=== PATIENT | male | born 1995 | race Caucasian/White ===

== ENCOUNTER 2021-05-03 13:20 | Emergency (ER) | payer OTHER, SELFPAY ==
--- NOTE | ~2021-05-03 | XR_ITS ---
EXAMINATION: XR wrist LT min 3V DATE: 05/03/2021 13:44 INDICATION: 4 days of nontraumatic left wrist pain and swelling TECHNIQUE: Posteroanterior, ulnar deviation, oblique, and lateral views of the left wrist were obtain ed. COMPARISON: none FINDINGS: Alignment is normal. No fracture. Joint spaces are normal. Soft tissues are unremarkable. IMPRESSION: 1. Negative left wrist radiographs. Reviewed, dictated and finalized at location A.
--- NOTE | 2021-05-03 13:25 | ED.UPPEXIN ---
HPI - Extremity Injury (Upper) General Chief Complaint: Extremity Injury, Upper Stated Complaint: Left Wrist Pain Time Seen by Provider: 05/03/21 13:25 Source: patient and RN notes reviewed History of Present Illness HPI narrative: Patient is a 26-year-old male who presents the urgent care with complaints of left wrist pain. Patient states he noticed swelling and pain last Monday. Patient is left-hand dominant however does most activities with his right hand. Patient has not taken anything [id number] for the swelling or pain. 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 Denies of any known injury. No other acute complaints. No acute distress noted. Patient aware of the plan of care. Some parts of this dictation were generated by voice recognition software and may contain typographical and/or grammatical inaccuracies. Related Data Home Medications Medication Instructions Recorded Confirmed No Home Medications 05/03/21 05/03/21 Allergies Allergy/AdvReac Type Severity Reaction Status Date / Time No Known Allergies Allergy Verified 05/03/21 13:35 Review of Systems Review of Systems: CONSTITUTIONAL: Denies fever, chills, or sweats. EYES: Denies visual changes, redness, or discharge. ENT: Denies rhinorrhea, congestion, sore throat, or otalgia. CARDIOVASCULAR: Denies chest pain, palpitations, or edema. RESPIRATORY: Denies cough or dyspnea. GASTROINTESTINAL: Denies abdominal pain, nausea, vomiting, or diarrhea. GENITOURINARY: Denies dysuria or hematuria. SKIN: Denies rash or itching. MUSCULOSKELETAL: Reports of left wrist pain and swelling NEUROLOGIC: Denies headache, numbness, or weakness. All other systems reviewed are negative, except as documented in HPI. PMFSH Comments At the time of my signature, I reviewed and agree with the nursing past medical, surgical, social, and family history. There is no relevant family history pertinent to the patient complaint. Exam Narrative: GENERAL: This is a well-nourished, well-developed patient, in no apparent distress. HEAD: normocephalic, atraumatic. EYES: PERRL. Sclera clear/white. Vision is grossly intact. EARS: External ears normal NOSE: External nose normal with no obvious nasal discharge, nares without redness, no rhinorrhea. THROAT: Mucous membranes moist NECK: Neck supple CARDIOVASCULAR: Regular rate and rhythm without murmurs, gallops, or rubs. RESPIRATORY: Clear to auscultation. Breath sounds equal bilaterally. No wheezes, rales, or rhonchi. SKIN: warm, intact with no suspicious lesions or rash, good texture and turgor. NEURO: awake, alert, and oriented to person, place and time. There were no obvious focal neurologic abnormalities. EXTREMITIES: Mild edema and tenderness noted to the distal radius of the left wrist. No ecchymosis noted. Pain exacerbated with rotation and movement of the left upper extremity. Positive strong left radial pulse with capillary refill less than 2 seconds. Course Vital Signs Vital signs: Vital Signs Temperature 98.1 F 05/03/21 13:32 Pulse Rate 84 05/03/21 13:32 Respiratory Rate 20 05/03/21 13:32 Blood Pressure 145/74 H 05/03/21 13:32 Pulse Oximetry 100 05/03/21 13:32 Temperature 98.1 F 05/03/21 13:32 Pulse Rate 84 05/03/21 13:32 Respiratory Rate 20 05/03/21 13:32 Blood Pressure 145/74 H 05/03/21 13:32 Pulse Oximetry 100 05/03/21 13:32 Reviewed-patient is informed that they may have pre-hypertension or hypertension based on a blood pressure reading in the department. I recommend the patient call the primary care provider listed on their discharge instructions or a physician of their choice this week to arrange follow-up for further evaluation of possible pre-hypertension or hypertension. MDM - Extremity Injury (Upper) MDM Narrative Medical decision making narrative: Reviewed x-ray results with the patient. He is aware that x-ray was negative for fracture or deformity. Advised patient to wear an Ajit wr
[2021-05-03 13:32] VITALS: BP 145/74; PULSE 84; RESP 20; TEMP 36.7; O2SAT 100
== END 2021-05-03 14:00 | disposition home or self-care (01) ==
PROVIDERS: Emergency Provider Nurse Practitioner Family
DX: M77.8 Other enthesopathies, not elsewhere classified (principal)
CPT/HCPCS: 73110; 99213; G0463

== ENCOUNTER 2023-06-23 16:08 | Emergency (ER) | payer OTHER, SELFPAY ==
[2023-06-23 16:15] VITALS: BP 167/85; PULSE 96; RESP 20; TEMP 37.2; O2SAT 96
--- NOTE | 2023-06-23 16:30 | ED.GENADULT ---
HPI - General Adult General Chief complaint: Upper Respiratory Infection Stated complaint: Shortness of Breath/Cough Source: patient, RN notes reviewed and old records reviewed Mode of arrival: ambulatory Limitations: no limitations History of Present Illness HPI narrative: 28-year-old male presents to [facility] with complaint cough for approximately 4 weeks now having intermittent shortness of breath for the last week to 2. Patient states has history of asthma but has had issues for a long time. Patient denies chest pain, weakness, dizziness, fever, vomiting. MD complaint: Shortness of breath Onset (ago): week(s) (1) Related Data Allergies Allergy/AdvReac Type Severity Reaction Status Date / Time No Known Allergies Allergy Verified 06/23/23 16:13 Review of Systems Constitutional: Constitutional: Reports no additional constitutional complaints, Denies body ache(s), Denies chills, Denies fatigue, Denies fever(s) and Denies headache(s) Eyes: Eyes: Reports no additional eye complaints and Denies blurry vision ENT: Reports system reviewed and no additional complaints, except as documented, Denies vertigo, Denies dizziness, Denies ear discharge, Denies otalgia, Denies facial pain, Denies headache(s), Reports nasal congestion, Denies nasal discharge, Denies sinus pain, Denies sinus pressure and Denies sore throat Cardiovascular: Cardiovascular: Reports no additional cardiovascular complaints, Denies chest pain, Denies chest pain at rest, Denies rapid heart rate and Denies dyspnea Respiratory: Respiratory: Reports no additional respiratory complaints, Reports chest congestion, Reports cough, Denies pain on inspiration, Denies pain with cough and Reports dyspnea Gastrointestinal: Gastrointestinal: Denies abdominal pain, Denies diarrhea, Denies nausea and Denies vomiting Integumentary/Breasts: Skin/Breast: Denies rash Neurologic: Reports system reviewed and no additional complaints, except as documented, Denies vertigo, Denies dizziness and Denies headache(s) Endocrine: Endocrine: Denies fatigue PMFSH Comments At the time of my signature, I reviewed and agree with the nursing past medical, surgical, social, and family history. There is no relevant family history pertinent to the patient complaint. Exam Const: General: cooperative, healthy appearing, no acute distress and well nourished Nutritional Appearance: well nourished Orientation/consciousness: patient oriented x3 Limitations: no limitations HENMT: Head: normal to inspection and normocephalic Ears: external ears normal, TM's normal bilaterally, mastoids normal and Abnormal EAC present Face/Nose/Sinus: normal facial exam Face and sinus: normal facial exam Mouth: Yes Normal oral and palatal mucosa present, Yes oropharynx normal and Yes moist mucous membranes Throat: posterior oropharynx normal, tonsils normal, uvula midline and no uvular edema Eyes: General: appearance normal, both eyes and all related structures Sclera: sclerae normal Pupils: Equal, round and reactive pupils present Resp: Effort & Inspection: normal respiratory effort, able to speak in complete sentences, no audible wheezes, no cough, no respiratory distress and no retractions Auscultation: no crackles, no rales, no rhonchi and wheezes inspiratory wheezes ( bilateral lower lobe) Cardio: Rate: regular rate Rhythm: regular rhythm Skin: General skin exam: normal color and no rashes or lesions noted Neuro: General: patient oriented x3 Cranial nerves: Yes Equal, round and reactive pupils present Psych: Appearance: grossly normal Mental Status: mental status grossly normal Speech and movement: Normal speech and movement present Affect: normal affect Course Course Emergency Course: Patient is aware of diagnosis, understands and agrees to treatment plan.? Anticipatory guidance given.? Patient agrees to follow-up as directed and is aware of reasons to seek care at the emergency department. García
== END 2023-06-23 16:38 | disposition home or self-care (01) ==
PROVIDERS: Emergency Provider Registered Nurse
DX: J20.9 Acute bronchitis, unspecified (principal); J45.20 Mild intermittent asthma, uncomplicated
CPT/HCPCS: 99213; G0463

== ENCOUNTER 2024-11-09 12:41 | Emergency (ER) | payer OTHER, SELFPAY ==
--- NOTE | ~2024-11-09 | CT_ITS ---
CT brain wo con Ordering provider: Orly Block PA-C History: 29 years Male with . headache . Comparison: None. Technique: CT of the head without contrast. Radiation reduction technique utilized.The dose-length pr oduct was 605.33 mGy-cm. FINDINGS: BRAIN PARENCHYMA AND CSF SPACES: No midline shift, mass effect or hemorrhage. The brain parenchyma a nd CSF spaces are otherwise normal. VISUALIZED PARANASAL SINUSES: Well aerated. MASTOIDS: Well aerated. BONES: The bones appear intact. SOFT TISSUES: Visualized nasopharynx is normal. Superficial soft tissues are normal. IMPRESSION: No acute intracranial findings. Reviewed, dictated and finalized at location A.
--- OUTSIDE RECORDS SUMMARY | 2024-11-09 12:44 | XMS_ITS | Clinical Summary ---
Author Organization [facility] Address [address] [place] [address] Phone Care Team Providers Care Ice Cream Vendor Name Role Phone Unavailable Primary Care Provider Unavailabl e Allergies No known active allergies Medications sucralfate (CARAFATE) 1 GM Tablet Take 1 Tab by mouth every 6 hours. 120 Tab 3 7 Active omeprazole (PRILOSEC) 40 MG CAPSULE DELAYED RELEASE Take 1 Cap by mouth 2 times daily (before meals). 180 Cap 7 Active ondansetron (ZOFRAN ODT) 8 MG TABLET DISPERSIBLE Take 1 Tab by mouth every 8 hours as needed for Nausea. 30 Tab 7 Active Additional Information Patient not taking.Reported on 05/04/2017 Active Problems Problem Noted Date Diagnosed Date Dysuria 07/22/2015 Family History Medical History Relation Name Comments Alcohol Abuse Father Diabetes Father Cancer Maternal Grandmother intesti sirena No Known Problems Mother Relation Name Status Comments Father Alive Maternal Grandmother Mother Alive Social History Tobacco Use Types Packs/Day Years Used Date Smoking Tobacco: Some Days Cigarettes 0.5 5 Smokeless Tobacco: Current Chew Tobacco Cessation:Ready to Q uit: Yes; Counseling Given: Yes Comments:trying to quit Alcohol Use Standard Drinks/Week Comments Yes 0 (1 standard drink = 0.6 oz pure alcohol) drinks week ends case beers on week ends Sexually Active Control Partners Comments Yes Female Sex and Gender Information Value Date Recorded Sex Assigned at Not on file Legal Sex Male 10:48 PM CDT Gender Identity Not on file Sexual Orientation Not on file 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 file Not on file Not on file Last Filed Vital Signs Vital Sign Reading Time Taken Comments Blood Pressure 127/77 05/09/2017 10:59 AM SCADA OPERATOR Pulse 64 05/09/2017 9:03 AM SCADA OPERATOR Temperature 36 C (96.8 F) 05/09/2017 10:59 AM SCADA OPERATOR Respiratory Rate 15 05/09/2017 10:59 AM SCADA OPERATOR Oxygen Saturation 100% 05/09/2017 10:59 AM SCADA OPERATOR Inhaled Oxygen Concentration - - Weight 81.6 kg (180 lb) 05/04/2017 9:00 AM CDT Height 182.9 cm (6') 05/04/2017 9:00 AM CDT Body Mass Index 24.41 05/04/2017 9:00 AM CDT Plan of Treatment Upcoming Encounters Date Type Department Care Team (Late st Contact Info) Description 11/20/2024 4:45 PM CDT Office Visit [facility] - Primary Care - [facility] [address] [place] [address] Drew Chen, PAC [address] [place] [address] Health Maintenance Due Date Last Done Comments Hepatitis C Virus (HCV) Screening 1995 TdaP Immunization 1995 06/30/2022, 06/07/2018 Hepatitis B Immunization (1 of 3 - 19+ 3-dose series) 2014 Influenza Immunization (#1) 2024 SARS-COV-2 Immunization ( season) 2024 05/26/2021 Respiratory Syncytial Virus (RSV) Immunization (Adult) (1 - 1-dose 75+ series) 2070 Meningococcal Immunization (ACWY) Aged Out No longer eligible b ased on patient's age to complete this topic Pneumococcal Immunization Combined Aged Out No longer eligible b ased on patient's age to complete this topic Rotavirus Immunization Aged Out No lo nger eligible based on patient's age to complete this topic
--- OUTSIDE RECORDS SUMMARY | 2024-11-09 12:44 | XMS_ITS | Referral Summary ---
Author Organization [facility] [address] Address [address] [facility] [place] [address] Phone Care Team Providers Care Weighing Station Operator Name Role Phone Abdirahman Snyder MD Primary Care Provider [phone] Encounters Date Type Department Care Team Description 11/07/2024 2:14 AM CDT - 11/07/2024 4:09 AM CDT Emergency [facility] Emergency Department [address] [place] [address] Lakhwinder Baltazar MD Atypical chest pain (Primary Dx); Nonintractable headache, unspecified chronicity pattern, unspecified headache type Discharge Disposition: Discharge to home or self care from Last 3 Months Allergies No known active allergies Medications naproxen (NAPROSYN) 500 mg tablet Take 1 tablet (500 mg total) by mouth 2 (two) times a day as needed for pain (pain) 28 tablet 02/05/2024 Active Active Problems Problem Noted Date Diagnosed Date Right flank pain 02/05/2024 Assessment & Plan (02/05/2024 6:02 PM CDT): Patient describes pain approximate 10th rib down to approximate L3 pain is midclavicular line goes around to anterior clavicular line. Pain is only when he takes a deep breath and turns certain ways.. 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 Does have some pain in both lower abdomen on palpating. Acute abdomen present no masses felt. 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 14 days patient is advised if he gets worse go to the emergency room he advised if he does not totally clear he is to contact me. Low back pain without sciatica 08/03/2023 Assessment & Plan (08/03/2023 5:09 PM [employer]): Patient has had low back pain for about 3 weeks he saw a chiropractor no benefits from the visits he put on icStupil hot this did not help his back did not want to take any pills at the time. 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 His back pain is on left side was down to his buttocks straight leg raise aggravates his back pain minimally.. Plans at this time for this gentleman physical therapy to teach him about back exercises. Advised him given his line of work he is going to have recurrent back pain. Came some Naprosyn 500 mg twice a day with food for month. Gastroesophageal reflux disease without esophagi tis 07/06/2018 Assessment & Plan (07/06/2018 1:56 PM [employer]): Patient's 23 years old he tells me he is having a lot of heartburn get a similar problems about a year urine half ago saw Dr. Solomon was given medications which solve this problem he has been symptomatic about 2 weeks. Patient's pain is worse after he eats. Review his chart about ER and half ago he was given Carafate follow-up by omeprazole 40 mg a day. Is no pain going through to his back. Pain over the epigastric area on palpating no liver enlargement nothing else is present. Plans at this patient is given Dexilant 60 mg samples total of 10 tabs be followed by omeprazole 40 mg per day for 30 days. Patient was advised to discontinue smoking. 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 With the GERD symptoms he smoking less because of smoking does aggravate his stomach advised patient stop smoking. Discussed with him nicotine patch the how they work utilizing nicotine gum with it. So recommended that he consider Chantix I gave patient information and handbook on Chantix. Well adult exam 12/25/2017 Assessment & Plan (08/03/2023 4:04 PM [employer]): History and physical completed patient's health risk assessment health maintenance reviewed in addressed. Only new health problems back pain which is been going on about 3 weeks. 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 No immunizations a blood test indicated at this time. Patient has declined a flu shot. Assessment & Plan (01/22/2021 5:06 PM CDT): History and physical completed patient's health risk assessment health maintenance reviewed in addressed. Patient is asymptomatic patient has not had a COVID vaccine. Answer patient's questions regarding COVID vaccine. Reminded patient's at this time the people dying from COVID are unvaccinated. Discussed with this patient regarding HPV vaccine. Given handout on HPV vaccine. Advised not want. No laboratory studies indicate him to get a COVID vaccine for 2 months later he get HPV. COVID is an immediate threat to him HPV is not. The laboratory studies indicated Assessment & Plan (12/25/2017 5:38 PM CDT): 22-year-old gentleman who is here for annual exam no ongoing health problems as a past history of asthma which he has not been symptomatic for least 5 years. 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 Without any respiratory any of the health difficulties. His exam is completely normal. No indications for any laboratory studies. See this gentleman a p.r.n. basis. Resolved Problems Problem Noted Date Diagnosed Date Resolved Date Non-recurrent acute suppurat godwin otitis media of right ear without spontaneous rupture of tympanic membrane 01/06/2021 08/03/2023 Assessment & Plan (01/06/2021 3:50 PM CDT): Patient presents with bilateral ear pain fever, congestion, fever and feelings of being light headed. On exam acute otitis of the rt ear noted. He will begin antibiotic therapy which he is to complete as prescribed. He will return for recheck in 7-10 days to verify resolution or sooner if needed. Cough 01/06/2021 08/03/2023 Assessment & Plan (01/06/2021 3:52 PM CDT): Patient presents with cough x 4 days. He has associated wheezing and congestion. He had rapid covid 19 testing completed that was negative. We will do CXR to r/o any acute cardiopulmonary process. He will be started on steroids and albuterol inhaler for cough and wheezing. He was encouraged to avoid tobacco abuse. He will follow up in 7-10 days to verify resolution of symptoms. He is to call with any worsening or persistent symptoms. Chest pain in adult 05/25/2020 08/03/19 Assessment & Plan (05/25/2020 5:31 PM [employer]VISOR [employer]): Patient has been having some chest pain over 2 months is right over the sternum into the left approximately 2nd through 4th rib not in the mid axillary line is parasternal pain.. 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 Other times is walking gives is pain pain is less than 5 minutes duration.. Patient advised me that he wears a harness worse chest is the pulls on him and is equal to about 40- 50 lb weight. Patient's EKG is normal. Has no further recommendations at this time he will be taking Naprosyn for his neck pain and may help with his chest wall type pain. Neck pain, acute 05/25/2020 08/03/2023 Assessment & Plan (05/25/2020 5:30 PM [employer]OR [employer]): Acute neck pain x3 days no history of injury patient woke up with neck pain pain on range of motion. Went to a chiropractor earlier today this has not helped him. Patient has full range of motion is neck however his pain at about 30 turning in the left or right. Some tightness over the top of his shoulders in his neck. His previous problem about 2 months ago last several days.. Patient not schedule work remainder of the week will prescribe for him Flexeril 10 mg 1-2 times per day. Patient is also advised use Naprosyn 500 mg twice a day. Once he improves he can stop the Naprosyn. Flexeril is certainly a temporary situation I gave him warnings regarding side effects including drowsiness in operate machinery. Urinary tract infection without hematuria 02/20/2019 08/03/2023 Assessment & Plan (02/20/2019 10:37 AM CDT): Patient describes pain at tip of his urethra to time urination. He has suprapubic pain prior to urination has some slight groin tenderness at times symptoms in present 5-7 days. Plans at this time get a UA and culture and sensitivity start this gentleman on doxycycline 100 mg twice a day for next 10 days. Patient instructed give me a progress report next week.. Advised if this fails to clear up with appropriate antibiotics see rib very well admitted to see a urologist.. Dysuria 07/22/2015 08/03/2023 Immunizations Immunization Administration Dates Next Due Influenza, Unspecified 04/12/2023(Deferred: Chasity ent Refused) Tdap 06/30/2022,06/07/2018 Social History Tobacco Use Types Packs/Day Years Used Date Smoking Tobacco: Some Days Cigarettes Smokeless Tobacco: Current Tobacco Cessation:Ready to Q uit: Not Asked; Counseling Given: Not Answered Alcohol Use Standard Drinks/Week Comments Yes 12 (1 standard drink = 0.6 oz pu re alcohol) PHQ-2 Answer Date Recorded PHQ-2 Total Score (If total score is 3 or more points, staff should administer the PHQ-9) 0 05/25/2020 Personal Safety Answer Date Recorded Have you ever been in or are you currently in a harmful physical or emotional relationship or is someone making you feel afraid or unsafe? Denies 11/07/2024 Sex and Gender Information Value Date Recorded Sex Assigned at Not on file Legal Sex Male 7:01 PM [employer] Gender Identity Not on file Sexual Orientation Not on file Last Filed Vital Signs Vital Sign Reading Time Taken Comments Blood Pressure 125/76 11/07/2024 3:45 AM CDT Pulse 70 11/07/2024 3:45 AM CDT Temperature 37.3 C (99.2 F) 11/07/2024 12:15 AM CDT Respiratory Rate 18 11/07/2024 3:45 AM CDT Oxygen Saturation 98% 11/07/2024 3:45 AM CDT Inhaled Oxygen Concentration - - Weight 86.2 kg (190 lb) 11/07/2024 12:15 AM CDT Height 177.8 cm (5' 10 ) 11/07/2024 12:15 AM CDT Body Mass Index 27.26 11/07/2024 12:15 AM CDT Plan of Treatment Not on file Procedures Procedure Name Priority Date/Time Associated Diagnosis Comments TROPONIN T HIGH-SENSITIVITY 2-HOUR Timed 11/07/2024 2:25 AM CDT XR CHEST PA LATERAL 2 VIEWS ED 11/07/2024 12:37 AM CDT EGFR STAT 11/07/2024 12:27 AM CDT DIFFERENTIAL AUTO STAT 11/07/2024 12: 27 AM CDT TROPONIN T HIGH-SENSITIVITY SERIES (BASELINE, 2HR, 4HR, 6HR) STAT 11/07/2024 12:27 AM CDT COMPREHENSIVE METABOLIC PANEL STAT 11/07/2024 12:27 AM CDT CBC WITH AUTO DIFFERENTIAL STAT 11/07/2024 12:27 AM CDT ECG 12-LEAD STAT 11/07/2024 12:19 AM CDT from Last 3 Months Results * Troponin T high-sensitivity 2-hour (11/07/2024 2:25 AM CDT) Trop T hs <6 <=22 ng/L Comment: Interpretive Data For further hscTnT resources including the diagnostic algorithm and an aid in interpretation, copy and paste this link: https://nrl.testcatalog.org/show/hsTrop Current Interpretive Data last revised 2020. Trop T hs delta 0 ng/L [facility] ([place]) Trop T hs interp Insignificant [facility] ([place]) Blood 11/07/2024 2:25 AM CDT 11/07/2024 2:27 AM CDT Lakhwinder Baltazar MD LAB BLOOD ORDERABLES Final R esult [facility] ([place]) [facility] Department [place] [address] * XR Chest PA Lateral 2 Views (11/07/2024 12:37 AM CDT) Anatomical Region Laterality Modality Body, Chest N/A Computed Radiogr aphy 11/07/2024 12:4 3 AM CDT Narrative 11/07/2024 12:44 AM CDT EXAM DESCRIPTION: XR CHEST PA LATERAL 2 VIEWS REASON FOR STUDY: chest pain C/o left sided chest pain and a headache x 1 month. Pt states he has dizziness and nausea tonight. No cardiac hx TECHNIQUE: 2 radiographic view(s) of the chest. COMPARISON: 02/08/2024 FINDINGS: LUNGS: No focal opacity, pleural effusion, or pneumothorax. HEART/MEDIASTINUM: Cardiac silhouette normal in size. Mediastinal and hilar contours appear normal. LINES/TUBES: None. BONES: No acute osseous abnormality. IMPRESSION: No acute cardiopulmonary abnormality. THIS IS AN ELECTRONICALLY VERIFIED FINAL REPORT 11/07/2024 12:44 AM - Electronically signed by Matias Pleitez M.D. KH: LELIA Report ID: [id number] Reading Location: [id number] Procedure Note Matias Pleitez MD - 11/07/2024 EXAM DESCRIPTION: XR CHEST PA LATERAL 2 VIEWS REASON FOR STUDY: chest pain C/o left sided chest pain and a headache x 1 month. Pt states he hasdizziness and nausea tonight. No cardiac hx TECHNIQUE: 2 radiographic view(s) of the chest. COMPARISON: 02/08/2024 FINDINGS: LUNGS: No focal opacity, pleural effusion, or pneumothorax. HEART/MEDIASTINUM: Cardiac silhouette normal in size. Mediastinal andhilar contours appear normal. LINES/TUBES: None. BONES: No acute osseous abnormality. IMPRESSION: No acute cardiopulmonary abnormality. THIS IS AN ELECTRONICALLY VERIFIED FINAL REPORT 11/07/2024 12:44 AM - Electronically signed by Matias Pleitez M.D. KH: LELIA Report ID: [id number] Reading Location: [place] [address] Lakhwinder Baltazar MD IMG XR PROCEDURES Final Resu lt * Troponin T high-sensitivity series (baseline, 2hr, 4hr, 6hr) (11/07/2024 12:27 AM CDT) Trop T hs <6 <=22 ng/L Comment: Interpretive Data For further hscTnT resources including the diagnostic algorithm and an aid in interpretation, copy and paste this link: https://nrl.testcatalog.org/show/hsTrop Current Interpretive Data last revised 2020. Blood 11/07/2024 12:2 7 AM CDT 11/07/2024 12:40 AM CDT Lakhwinder Baltazar MD LAB BLOOD ORDERABLES Final R esult [facility] [place]) [facility] Department of Laboratories [place], [place] [id number] * eGFR (11/07/2024 12:27 AM CDT) eGFR >90 >=60 mL/min/1. 73 m2 Comment: Interpretive Data Reference Interval Normal >/= 90 mL/min/1.73m2 Mildly decreased* 60 - 89 mL/min/1.73m2 Mildly to moderately decreased 45 - 59 mL/min/1.73m2 Moderately to severely decreased 30 - 44 mL/min/1.73m2 Severely decreased 15 - 29 mL/min/1.73m2 Kidney Failure < 15 mL/min/1.73m2 *Relative to young adult level Estimated glomerular filtration rate is determined by the 2020 CKD-EPI equation recommended by the National Kidney Foundation (A Unifying Approach to GFR Estimation: Recommendations of the NKF-ASK Task Force on Reassessing the Inclusion of Race in Diagnosing Kidney Disease, JASN 2020). The CKD-EPI equation should not be used for patients with unstable renal function and has not been validated in children and those over 70. Current interpretive data was last reviewed 2021. Blood 11/07/2024 12:2 7 AM CDT 11/07/2024 12:40 AM CDT Lakhwinder Baltazar MD LAB BLOOD ORDERABLES Final R esult [facility] ([place]) [facility] Department [place] [address] * Differential, auto (11/07/2024 12:27 AM CDT) Neutrophil abs 2.90 1.50 - 6.50 K/cumm Imm gran abs 0.03 0.00 - 0.10 K/cumm [facility] ([place]) Lymphocyte abs 3.25 0.80 - 3.30 K/cumm [facility] ([place]) Monocyte abs 0.34 0.20 - 0.80 K/cumm [facility] ([place]) Eosinophil abs 0.11 0.00 - 0.50 K/cumm [facility] ([place]) Basophil abs 0.03 0.00 - 0.10 K/cumm [facility] ([place]) Neutrophil pct 43.4 % [facility] ([place]) Comment: Interpretive Data Percent cell count reference ranges are not reported, since discordance with absolute values may lead to misinterpretation of CBC data. Current Interpretive Data was last revised on 2017. Imm gran pct 0.5 % [facility] ([place]) Comment: Interpretive Data Percent cell count reference ranges are not reported, since discordance with absolute values may lead to misinterpretation of CBC data. Current Interpretive Data was last revised on 2017. Lymphocyte pct 48.8 % [facility] ([place]) Comment: Interpretive Data Percent cell count reference ranges are not reported, since discordance with absolute values may lead to misinterpretation of CBC data. Current Interpretive Data was last revised on 2017. Monocyte pct 5.1 % [facility] ([place]) Comment: Interpretive Data Percent cell count reference ranges are not reported, since discordance with absolute values may lead to misinterpretation of CBC data. Current Interpretive Data was last revised on 2017. Eosinophil pct 1.7 % [facility] ([place]) Comment: Interpretive Data Percent cell count reference ranges are not reported, since discordance with absolute values may lead to misinterpretation of CBC data. Current Interpretive Data was last revised on 2017. Basophil pct 0.5 % [facility] ([place]) Comment: Interpretive Data Percent cell count reference ranges are not reported, since discordance with absolute values may lead to misinterpretation of CBC data. Current Interpretive Data was last revised on 2017. Blood 11/07/2024 12:2 7 AM CDT 11/07/2024 12:40 AM CDT us Lakhwinder Baltazar MD LAB BLOOD ORDERABLES Final R esult [facility] ([place]) [facility] Department [place] [address] * CBC with auto differential (11/07/2024 12:27 AM CDT) WBC 6.66 3.80 - 9.90 K/cumm Hgb 14.3 13.0 - 17.5 g/dL [facility] ([place]) Hct 40.2 38.9 - 50.3 % [facility] ([place]) Plt 287 150 - 400 K/cumm [facility] ([place]) MPV 9.5 9.1 - 12.3 fL [facility] ([place]) RBC 4.74 4.30 - 5.80 M/cumm [facility] ([place]) MCV 84.8 81.3 - 96.4 fL [facility] ([place]) MCH 30.2 27.1 - 33.3 pg [facility] MCHC 35.6 32.3 - 35.7 g/dL [facility] ([place]) RDW CV 12.5 11.1 - 14.9 % [facility] ([place]) RDW SD 38.4 35.7 - 48.1 fL [facility] ([place]) NRBC abs 0.00 0.00 - 0.01 K/cumm [facility] ([place]) Blood Venous blood specimen / Unknown 11/07/2024 12:27 AM CDT 11/07/2024 12:40 AM CDT Lakhwinder Baltazar MD LAB BLOOD ORDERABLES Final R esult [facility] Department [place] [address] * (ABNORMAL) Comprehensive metabolic panel (11/07/2024 12:27 AM CDT) Sodium 143 135 - 145 mmol/L Potassium, pl 3.8 3.3 - 4.9 mmol/L [facility] ([place]) Chloride 106 97 - 110 mmol/L [facility] CO2 21(L) 22 - 32 mmol/L [facility] Anion gap 16(H) 2 - 15 mmol/L [facility] ([place]) BUN 11 6 - 25 mg/dL [facility] ([place]) Creatinine 0.83 0.80 - 1.30 mg/dL [facility] Glucose 135 70 - 199 mg/dL [facility] ([place]) Comment: Interpretive Data Fasting glucose >/= 126 mg/dl is diagnostic for diabetes. Fasting is defined as no caloric intake for at least 8 hours. Fasting glucose between 100 mg/dl to 125 mg/dl is diagnostic of prediabetes. In a patient with classic symptoms of hyperglycemia or hyperglycemic crisis, a random glucose >/= 200 mg/dl is diagnostic for diabetes. In the absence of unequivocal hyperglycemia, results should be confirmed by repeat testing. The classification and Diagnosis of Diabetes Diabetes Care 2021; 46: S19-S40. Current interpretive data was last revised 2022. Calcium 9.5 8.5 - 10.3 mg/dL [facility] Bilirubin, total <0.2 0.1 - 1.2 mg/dL [facility] ([place]) Protein, pl 7.4 6.5 - 8.5 g/dL [facility] ([place]) Albumin 4.7 3.5 - 5.0 g/dL [facility] ([place]) Alk phos 52 40 - 130 Units/L [facility] ([place]) ALT 29 7 - 55 Units/L [facility] ([place]) AST 22 10 - 50 Units/L [facility] ([place]) Comment: Hemolysis present. Results may be affected. Slightly Hemolyzed Specimen Blood 11/07/2024 12:2 7 AM CDT 11/07/2024 12:40 AM CDT Lakhwinder Baltazar MD LAB BLOOD ORDERABLES Final R esult Performing Organization Address City/[facility] Co de Phone Number [facility] ([place]) [address] [facility] Department [place] [address] * ECG 12 lead (11/07/2024 12:19 AM CDT) 11/07/2024 12:1 9 AM CDT Narrative [facility] - 11/07/2024 6:58 AM CDT Vent Rate: 94 bpm RR Interval: 635 msec SC Interval: 153 msec QRS Duration: 95 msec QT Interval: 330 msec QTC Interval: 382 msec P-R-T Prentiss: 73 - 50 - 44 degrees IMPRESSION: SINUS RHYTHM POSSIBLE RIGHT VENTRICULAR CONDUCTION DELAY [RSR (QR) IN V1/V2] NONSPECIFIC ST ELEVATION [0.05+ mV ST ELEVATION] BORDERLINE ECG Electronically Signed By: Adam Welch MD Lakhwinder Baltazar MD ECG ORDERABLES Final Result Performing Organization Address [facility] Co de Phone Number [facility] from Last 3 Months Insurance [facility] [employer] [facility] H[employer]/PPO Address: [address] [address] [place] [address] [facility] H[facility]/PPO Address: [address] [address] [place] [address] Care Teams Weighing Station Operator Relationship Specialty Start Date End Date Abdirahman Snyder MD PCP - General Internal Medicine 12/14/17
--- OUTSIDE RECORDS SUMMARY | 2024-11-09 12:44 | XMS_ITS | Clinical Summary ---
Author Organization CC [facility] [address] Address [address] [place] [address] Phone Care Team Providers Care Protein Purification Scientist Name Role Phone Abdirahman Snyder MD Primary Care Provider +1- [phone] Allergies No known active allergies Medications naproxen [...] 08/03/2023 Assessment & Plan (08/03/2023 5:09 PM CARPET MEASURER): Patient has had low back pain for about 3 weeks he saw a chiropractor no benefits from the visits he put on icy hot this did not help his back [...] 07/06/2018 Assessment & Plan (07/06/2018 1:56 PM CARPET MEASURER): Patient's 23 years old he tells me [...] 07/06/2018 Assessment & Plan (07/06/2018 1:57 PM CARPET MEASURER): Patient was back O2 from age 14 [...] 12/25/2017 Assessment & Plan (08/03/2023 4:04 PM CARPET MEASURER): History and physical completed patient's health risk [...] 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 Without any respiratory any of the health [...] symptoms. Chest pain in adult 05/25/2020 08/03/19 24 Assessment & Plan (05/25/2020 5:31 PM CARPET MEASURER): Patient has been having some chest pain over 2 months is right over the sternum into the left approximately 2nd through 4th rib not in the mid axillary line is parasternal pain.. 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 [...] 08/03/2023 Assessment & Plan (05/25/2020 5:30 PM CARPET MEASURER): Acute neck pain x3 days no history [...] to see a urologist.. Dysuria 07/22/2015 08/03/2023 Encounters Date Type Department Care Team Description 11/07/2024 2:14 AM CDT - 11/07/2024 4:09 AM CDT Emergency [facility] Emergency Department [address] [place] [address] Lakhwinder Baltazar MD Atypical chest pain (Primary Dx); Nonintractable headache, unspecified chronicity pattern, unspecified headache type Discharge Disposition: Discharge to home or self care from Last 3 Months Immunizations Immunization Administration Dates Next Due Influenza, Unspecified 04/12/2023(Deferred: Chasity ent Refused) Tdap 06/30/2022,06/07/2018 Family History Medical History Relation Name Comments Alcohol abuse Other Cancer Other Gout Other Hypertension Other Relation Name Status Comments Other Social History Tobacco Use Types Packs/Day Years [...] on file Legal Sex Male 7:01 PM CARPET MEASURER Gender Identity Not on file Sexual Orientation Not on file Obstetrics History Last Filed Vital Signs Vital Sign Reading [...] 11/07/2024 12:15 AM CDT Plan of Treatment Health Maintenance Due Date Last Done Comments Hepatitis C Screening 1995 Varicella Vaccines (1 of 2 - 13+ 2-dose series) 02/11/2008 Hepatitis B Screening 2013 Pneumococcal vaccine <65 (1 of 2 - PCV) 2014 Depression Screening 05/25/2021 05/25/2020 Covid-19 Vaccine (2 - 2023-2 5 season) 2024 05/26/2021 Regular Well Visit/Exam 18-64 08/03/2024, 01/22/2021, 12/25/2017 Influenza Vaccine (Season Ended) 2025 DTaP/Tdap/Td Vaccine (3 - Td or Tdap) 06/30/2032 06/30/2022, 06/07/2018 HPV Vaccines Aged Out No longer eligi ble based on patient's age to complete this topic Procedures Procedure Name Priority Date/Time Associated Diagnosis [...] hs delta 0 ng/L [facility] ([place]) Trop T hs interp Insignificant [facility] ([place]) Blood 11/07/2024 2:25 AM CDT 11/07/2024 2:27 AM CDT Lakhwinder Baltazar MD LAB BLOOD ORDERABLES Final R esult [facility] ([place]) 1 [facility] [place] [address] * XR Chest PA Lateral 2 Views [...] 12:44 AM - Electronically signed by Matias ROWELL: LELIA Report ID: [id number] Reading Location: [id number] Procedure Note Matias Pleitez MD - 11/07/2024 [...] 12:44 AM - Electronically signed by Matias ROWELL: LELIA Report ID: [id number] Reading Location: [place] [address] Lakhwinder Baltazar MD IMG XR PROCEDURES Final [...] BLOOD ORDERABLES Final R esult [facility] ([place]) 1 [facility] [place] [address] * eGFR (11/07/2024 12:27 AM CDT) eGFR [...] BLOOD ORDERABLES Final R esult [facility] ([place]) 1 [facility] [place] [address] * Differential, auto (11/07/2024 12:27 AM CDT) [...] Final R esult [facility] ([place]) 1 [facility] [place] [address] * CBC with auto differential (11/07/2024 12:27 AM CDT) Pathologist [facility] WBC 6.66 3.80 - 9.90 K/cumm Hgb [...] ([place]) MCH 30.2 27.1 - 33.3 pg [facility] ([place]) MCHC 35.6 32.3 - 35.7 g/dL [facility] ([place]) RDW CV 12.5 11.1 - 14.9 % [facility] ([place]) RDW SD 38.4 35.7 - 48.1 fL [facility] ([place] NRBC abs 0.00 0.00 - 0.01 K/cumm [facility] Blood Venous blood specimen / Unknown 11/07/2024 12:27 AM CDT 11/07/2024 12:40 AM CDT Lakhwinder Baltazar MD LAB BLOOD ORDERABLES Final R esult [facility] ([place]) 1 [facility] Department [place] [address] * (ABNORMAL) Comprehensive metabolic panel (11/07/2024 12:27 AM CDT) [facility] Sodium 143 135 - 145 mmol/L Potassium, pl 3.8 3.3 - 4.9 mmol/L [facility] ([place]) Chloride 106 97 - 110 mmol/L [facility] ([place]) CO2 21(L) 22 - 32 mmol/L [facility] ([place]) Anion gap 16(H) 2 - 15 mmol/L [facility] ([place]) BUN 11 6 - 25 mg/dL [facility] ([place]) Creatinine 0.83 0.80 - 1.30 mg/dL [facility] ([place]) Glucose 135 70 - 199 mg/dL [facility] ([place]) Comment: Interpretive Data Fasting glucose [...] 2022. Calcium 9.5 8.5 - 10.3 mg/dL [facility] ([place]) Bilirubin, total <0.2 0.1 - [...] Final R esult [facility] ([place]) 1 [facility] [place] [address] * ECG 12 lead (11/07/2024 12:19 AM CDT) 11/07/2024 12:1 9 AM CDT Narrative [facility] - 11/07/2024 6:58 AM CDT Vent Rate: 94 bpm RR Interval: 635 msec SC Interval: 153 msec QRS Duration: 95 msec QT Interval: 330 msec QTC Interval: 382 msec P-R-T [place]: 73 - 50 - 44 degrees IMPRESSION: SINUS RHYTHM POSSIBLE RIGHT VENTRICULAR CONDUCTION DELAY [RSR (QR) IN V1/V2] NONSPECIFIC ST ELEVATION [0.05+ mV ST ELEVATION] BORDERLINE ECG Electronically Signed By: Adam Welch MD us Lakhwinder Baltazar MD ECG ORDERABLES Final Result [facility] from Last 3 Months Insurance [facility] CHOICE PLUS [facility] H[facility]/PPO Address: [facility] [id number] [place] [id number] [facility] H[facility]/PPO Address: [address] [address] Care Teams Protein Purification Scientist Relationship Specialty Start Date End Date Abdirahman Snyder MD PCP - General Internal Medicine 12/14/17
[2024-11-09 13:10] VITALS: BP 150/80; PULSE 68; RESP 16; TEMP 36.6; O2SAT 100
--- OUTSIDE RECORDS SUMMARY | 2024-11-09 14:07 | XMS_ITS | Clinical Summary ---
Author Organization CC [facility] [address] Address [address] [place] [address] Phone Care Team Providers Care Manager Fixed Income Name Role Phone Abdirahman Snyder MD Primary Care Provider +1- [phone] Allergies No known active allergies Medications naproxen [...] 08/03/2023 Assessment & Plan (08/03/2023 5:09 PM BLUEPRINT CUTTER): Patient has had low back pain for [...] 07/06/2018 Assessment & Plan (07/06/2018 1:56 PM BLUEPRINT CUTTER): Patient's 23 years old he tells me [...] 07/06/2018 Assessment & Plan (07/06/2018 1:57 PM BLUEPRINT CUTTER): Patient was back O2 from age 14 [...] 12/25/2017 Assessment & Plan (08/03/2023 4:04 PM BLUEPRINT CUTTER): History and physical completed patient's health risk [...] 24 Assessment & Plan (05/25/2020 5:31 PM BLUEPRINT CUTTER): Patient has been having some chest pain over 2 months is right over the sternum into the left approximately 2nd through 4th rib not in the mid axillary line is parasternal pain.. 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 [...] 08/03/2023 Assessment & Plan (05/25/2020 5:30 PM BLUEPRINT CUTTER): Acute neck pain x3 days no history [...] CDT - 11/07/2024 4:09 AM CDT Emergency [facility] Emergency Department [address] [place] [address] Lakhwinder Baltazar MD Atypical chest pain (Primary [...] on file Legal Sex Male 7:01 PM BLUEPRINT CUTTER Gender Identity Not on file Sexual Orientation [...] hs delta 0 ng/L [facility] ([place]) Trop T hs interp Insignificant [facility] ([place]) Blood 11/07/2024 2:25 AM CDT 11/07/2024 2:27 AM CDT Lakhwinder Baltazar MD LAB BLOOD ORDERABLES Final R esult [facility] ([place]) 1 [facility] Department [place] [address] * XR Chest PA Lateral 2 Views [...] signed by Matias ROWELL: LELIA Report ID: [id number] Reading Location: [id number] Procedure Note Matias Pleitez MD - 11/07/2024 [...] signed by Matias ROWELL: LELIA Report ID: [id number] Reading Location: [place] [address] Lakhwinder Baltazar MD IMG XR PROCEDURES Final [...] BLOOD ORDERABLES Final R esult [facility] ([place]) 1 [facility] [place] [address] * eGFR (11/07/2024 12:27 AM CDT) eGFR [...] BLOOD ORDERABLES Final R esult [facility] ([place]) 1 [facility] [place] [address] * Differential, auto (11/07/2024 12:27 AM CDT) [...] Final R esult [facility] ([place]) 1 [facility] [place] [address] * CBC with auto differential (11/07/2024 12:27 AM CDT) Pathologist [facility] WBC 6.66 3.80 - 9.90 K/cumm [...] RDW SD 38.4 35.7 - 48.1 fL [facility] NRBC abs 0.00 0.00 - 0.01 K/cumm [facility] Blood Venous blood specimen / Unknown 11/07/2024 12:27 AM CDT 11/07/2024 12:40 AM CDT Lakhwinder Baltazar MD LAB BLOOD ORDERABLES Final R esult [facility] ([place]) 1 [facility] Department [place] [address] * (ABNORMAL) Comprehensive metabolic panel (11/07/2024 12:27 AM CDT) [facility] Sodium 143 135 - 145 mmol/L Potassium, [...] Final R esult [facility] ([place]) 1 [facility] Department [place] [address] * ECG 12 lead (11/07/2024 12:19 AM CDT) 11/07/2024 12:1 9 AM CDT Narrative [facility] - 11/07/2024 6:58 AM CDT Vent Rate: 94 bpm RR Interval: 635 msec [place] Interval: 153 msec QRS Duration: 95 msec QT Interval: 330 msec QTC Interval: 382 msec P-R-T [place]: 73 - 50 - 44 degrees IMPRESSION: SINUS RHYTHM POSSIBLE RIGHT VENTRICULAR CONDUCTION DELAY [RSR (QR) IN V1/V2] NONSPECIFIC ST ELEVATION [0.05+ mV ST ELEVATION] BORDERLINE ECG Electronically Signed By: Adam Welch MD us Lakhwinder Baltazar MD ECG ORDERABLES Final Result [facility] from Last 3 Months Insurance [facility] CHOICE PLUS [facility] Care Teams Manager Fixed Income Relationship Specialty Start Date End Date Abdirahman Snyder MD PCP - General Internal Medicine 12/14/17
--- OUTSIDE RECORDS SUMMARY | 2024-11-09 14:07 | XMS_ITS | Referral Summary ---
Author Organization CC [facility] [address] Address 1 [facility] [place] [address] Phone Care Team Providers Care Accounts Adjustable Clerk Name Role Phone Abdirahman Snyder MD Primary Care Provider +1- [phone] Encounters Date Type Department Care Team Description 11/07/2024 2:14 AM CDT - 11/07/2024 4:09 AM CDT Emergency [facility] Emergency Department [address] [place] [address] Lakhwinder Baltazar MD Atypical chest pain (Primary [...] 08/03/2023 Assessment & Plan (08/03/2023 5:09 PM PRESIDENT [employer]): Patient has had low back pain for about 3 weeks he saw a chiropractor no benefits from the visits he put on icStudyRoom hot this did not help his back [...] 07/06/2018 Assessment & Plan (07/06/2018 1:56 PM PRESIDENT [employer]): Patient's 23 years old he tells me [...] 07/06/2018 Assessment & Plan (07/06/2018 1:57 PM PRESIDENT [employer]): Patient was back O2 from age 14 [...] 12/25/2017 Assessment & Plan (08/03/2023 4:04 PM PRESIDENT [employer]): History and physical completed patient's health risk [...] 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 Without any respiratory any of the health [...] 08/03/19 Assessment & Plan (05/25/2020 5:31 PM PRESIDENT [employer]): Patient has been having some chest pain over 2 months is right over the sternum into the left approximately 2nd through 4th rib not in the mid axillary line is parasternal pain.. 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 [...] 08/03/2023 Assessment & Plan (05/25/2020 5:30 PM PRES[employer]): Acute neck pain x3 days no history [...] on file Legal Sex Male 7:01 PM PRESIDENT [employer] Gender Identity Not on file Sexual Orientation [...] Trop T hs interp Insignificant [facility] ([place]) Blood 11/07/2024 2:25 AM CDT 11/07/2024 2:27 AM CDT Lakhwinder Baltazar MD LAB BLOOD ORDERABLES Final R esult [facility] ([place]) 1 [facility] Department [place] [address] * XR Chest PA Lateral 2 Views [...] Matias Pleitez M.D. KH: LELIA Report ID: [id number] Reading Location: [id number] Procedure Note Matias Pleitez MD - 11/07/2024 [...] Matias Pleitez M.D. KH: LELIA Report ID: [id number] Reading Location: [place] [address] Lakhwinder Baltazar MD IMG XR PROCEDURES Final [...] BLOOD ORDERABLES Final R esult [facility] [place]) 9 [facility] Department of Laboratories [place], [place] [id number] * eGFR (11/07/2024 12:27 AM CDT) eGFR [...] MD LAB BLOOD ORDERABLES Final R esult [facility] ([place]) 1 [facility] Department [place] [address] * Differential, auto (11/07/2024 12:27 AM CDT) [...] Final R esult [facility] ([place]) 1 [facility] Department [place] [address] * CBC with auto differential (11/07/2024 12:27 [...] ([place]) MCH 30.2 27.1 - 33.3 pg [facility] ([place] MCHC 35.6 32.3 - 35.7 g/dL [facility] ([place]) RDW CV 12.5 11.1 - 14.9 % [facility] ([place]) RDW SD 38.4 35.7 - 48.1 fL [facility] ([place]) NRBC abs 0.00 0.00 - 0.01 K/cumm [facility] ([place]) Blood Venous blood specimen / Unknown 11/07/2024 12:27 AM CDT 11/07/2024 12:40 AM CDT Lakhwinder Baltazar MD LAB BLOOD ORDERABLES Final R esult [facility] ([place] 1 [facility] Department [place] [address] * (ABNORMAL) Comprehensive metabolic panel (11/07/2024 12:27 AM CDT) Sodium 143 135 - 145 mmol/L Potassium, pl 3.8 3.3 - 4.9 mmol/L [facility] ([place]) Chloride 106 97 - 110 mmol/L [facility] ([place] CO2 21(L) 22 - 32 mmol/L [facility] ([place]) Anion gap 16(H) 2 - 15 mmol/L [facility] ([place]) BUN 11 6 - 25 mg/dL [facility] ([place]) Creatinine 0.83 0.80 - 1.30 mg/dL [facility] ([place]) Glucose 135 70 - 199 mg/dL [facility] ([place]) Comment: Interpretive Data Fasting glucose [...] 2022. Calcium 9.5 8.5 - 10.3 mg/dL [facility] ([place] Bilirubin, total <0.2 [...] ORDERABLES Final R esult Performing Organization Address City/[facility] Co de Phone Number [facility] ([place]) 1 [facility] [place] [address] * ECG 12 lead (11/07/2024 12:19 AM CDT) 11/07/2024 12:1 9 AM CDT Narrative [facility] - 11/07/2024 6:58 AM CDT Vent Rate: 94 bpm RR Interval: 635 msec [place] Interval: 153 msec QRS Duration: 95 msec QT Interval: 330 msec QTC Interval: 382 msec P-R-T [place]: 73 - 50 - 44 degrees IMPRESSION: SINUS RHYTHM POSSIBLE RIGHT VENTRICULAR CONDUCTION DELAY [RSR (QR) IN V1/V2] NONSPECIFIC ST ELEVATION [0.05+ mV ST ELEVATION] BORDERLINE ECG Electronically Signed By: Adam Welch MD Lakhwinder Baltazar MD ECG ORDERABLES Final Result Performing Organization Address [facility] Co de Phone Number [facility] from Last 3 Months Insurance [facility] CHOICE PLUS [facility] Care Teams Accounts Adjustable Clerk Relationship Specialty Start Date End Date Abdirahman Snyder MD PCP - General Internal Medicine 12/14/17
--- OUTSIDE RECORDS SUMMARY | 2024-11-09 14:07 | XMS_ITS | Clinical Summary ---
Author Organization [facility] Address [address] [place] [address] Phone Care Team Providers Care Pig Machine Supervisor Name Role Phone Unavailable Primary Care Provider [...] Comments Blood Pressure 127/77 05/09/2017 10:59 AM CREDIT CONTROL CLERK Pulse 64 05/09/2017 9:03 AM CREDIT CONTROL CLERK Temperature 36 C (96.8 F) 05/09/2017 10:59 AM CREDIT CONTROL CLERK Respiratory Rate 15 05/09/2017 10:59 AM CREDIT CONTROL CLERK Oxygen Saturation 100% 05/09/2017 10:59 AM CREDIT CONTROL CLERK Inhaled Oxygen Concentration - - Weight 81.6 kg (180 lb) 05/04/2017 9:00 AM CDT Height 182.9 cm (6') 05/04/2017 9:00 AM CDT Body Mass Index 24.41 05/04/2017 9:00 AM CDT Plan of Treatment Upcoming Encounters Date Type Department Care Team (Late st Contact Info) Description 11/20/2024 4:45 PM CDT Office Visit [facility] - Primary Care - Jimmy [address] [place] [address] Drew Chen, PAC [address] [place] [address] Health Maintenance Due Date Last [...]
--- NOTE | 2024-11-09 14:43 | ED_ITS ---
HPI - Headache General Chief Complaint: Headache Stated Complaint: Prolonged Headache x 5days Time Seen by Provider: 11/09/24 13:59 History of Present Illness HPI Narrative: 29-year-old male with no past medical history presents to the emergency department for intermittent headaches for the past month and a half. Patient states the headaches for originally on the right lateral aspect of his head, intermittent described as a sharp sensation. Three days ago he states the headache became constant and is now describing it as a band around his temples. He he went to [facility] 3 days ago he states he received aspirin and was discharged home. He presents today because he wants a CT of his brain. States he is concerned because he has never had headaches prior to this. He denies head injury trauma, vision changes, focal numbness or weakness, neck pain or nuchal rigidity, fever. 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 He has been taking 600 mg of ibuprofen [id number] with improvement. Last dose of ibuprofen at 9:30 a.m. this morning. Related Data Allergies Allergy/AdvReac Type Severity Reaction Status Date / Time No Known Allergies Allergy Verified 11/09/24 12:42 Review of Systems Review of Systems: All systems reviewed & are unremarkable except as noted in HPI and below Exam Narrative: GENERAL: Well-appearing, well-nourished, and in no acute distress. HEAD: Normocephalic, atraumatic. EYES: PERRLA and EOMI. ENT: Nares clear, no rhinorrhea or epistaxis. Mucous membranes moist. NECK: Supple. No nuchal rigidity CHEST: Clear to auscultation. No respiratory distress. HEART: Regular rate and rhythm. No murmur heard. Normal peripheral pulses. ABDOMEN: Soft, nontender, nondistended, normal active bowel sounds. EXTREMITIES: Normal range of motion. No edema. SKIN: Warm, dry, no rash. NEURO: No focal deficits. Alert and oriented x4. cranial nerves 2-12 intact. Strength 5/5 in BUE and BLE. Sensation intact throughout. Normal fin von-to-nose. No pronator drift. Course Vital Signs Vital signs: Vital Signs Temperature 97.8 F 11/09/24 13:10 Pulse Rate 68 11/09/24 13:10 Respiratory Rate 16 11/09/24 13:10 Blood Pressure 150/80 H 11/09/24 13:10 Pulse Oximetry 100 11/09/24 13:10 Oxygen Delivery Room Air 11/09/24 13:10 Temperature 97.8 F 11/09/24 13:10 Pulse Rate 68 11/09/24 13:10 Respiratory Rate 16 11/09/24 13:10 Blood Pressure 150/80 H 11/09/24 13:10 Pulse Oximetry 100 11/09/24 13:10 Oxygen Delivery Room Air 11/09/24 13:10 MDM - Headache MDM Narrative Medical decision making narrative: 29-year-old male with no past medical history presents to the ED for intermittent headaches for the past month and a half. Originally the headaches for on the right side of his head and described as a sharp sensation intermittent. Over the past 3 days the headaches have been more constant and are now in his temporal regions and described as a ?band? sensation. Patient did go to an outside facility 3 days ago and was given aspirin. He states he did not have any labs or imaging performed. He presents today requesting a CT scan. Triage vitals with over blood pressure 150/80, otherwise unremarkable. Patient is afebrile and nontoxic appearing, resting comfortably in exam bed. A&Ox4, GCS 15 and neurovascularly intact. No nuchal rigidity or infectious sx. No injury or trauma. CT brain shows no acute intracranial findings. Patient updated on results. He received IM Toradol, p.o. Reglan and Benadryl with improvement. He is requesting to be discharged home. Presentation consistent with tension headache. Will send Reglan, Benadryl and ibuprofen to the pharmacy and advised follow-up with his PCP. He has an upcoming appointment later this month which which I encouraged 310. I discussed strict ED return precautions. He is agreeable with the plan verbalized understanding. Discharged in stable condition. Discharge Plan Discharge Clinical Impression: Tension headache Patient Disposition: Home Condition: Stable Instructions: Antibiotic Form, Tension Headache (ED) Additional Instructions: You were evaluated in the emergency department for headache. Your exam and CT are reassuring. Please take the medications as directed as needed for headaches and follow-up closely with your primary care provider at her upcoming appointment. Return to the emergency department if you develop a fever, vision changes, focal numbness or weakness, or other concerning symptoms. Patient Language: Yi Prescriptions: New diphenhydramine HCl 25 mg capsule 25 mg PO Q8H PRN (Reason: headache) Qty: 14 0RF metoclopramide HCl 10 mg tablet 10 mg PO Q6H PRN (Reason: nausea and vomiting) Qty: 14 0RF ibuprofen 800 mg tablet 800 mg PO TID PRN (Reason: pain) Qty: 14 0RF No Action doxycycline hyclate 100 mg capsule 100 mg PO Q12H 7 Days Qty: 14 0RF prednisone 20 mg tablet 20 mg PO BID 5 Days Qty: 10 0RF albuterol sulfate 90 mcg/actuation HFA aerosol inhaler 2 puff inhalation Q4-6H PRN (Reason: shortness of breath or wheezing) Qty: 8.5 0RF Follow-up/Referrals: PHYSICIAN,SPORTS CLERK [Primary Care Provider] -
[2024-11-09] MEDS: METOCLOPRAMIDE HCL 10 MG TABLET PO (14:59)
[2024-11-09] MEDS: diphenhydrAMINE HCl CAP 25 MG CAPSULE PO (14:59)
[2024-11-09] MEDS: KETOROLAC 30 MG/ML VIAL (*BKC) IM (15:00)
[2024-11-09 16:25] VITALS: RESP 16
== END 2024-11-09 16:26 | disposition home or self-care (01) ==
PROVIDERS: Emergency Provider Physician Assistant
DX: G44.209 Tension-type headache, unspecified, not intractable (principal)
CPT/HCPCS: 70450; 96372; 99284; A9270; J1885

== ENCOUNTER 2025-04-26 08:18 | Emergency (ER) | payer OTHER, SELFPAY ==
--- NOTE | 2025-04-26 08:27 | ED.GENADULT ---
HPI - General Adult General Chief complaint: Back Pain/Injury Stated complaint: back, side, and leg pain Time Seen by Provider: 04/26/25 08:28 Source: patient Mode of arrival: ambulatory Limitations: no limitations History of Present Illness HPI narrative: 30-year-old male patient presents to [facility] with complaints of low back pain. Patient states this is chronic back pain has been going on for the last 6 years. Patient does work as a [employer] and states that he knows he injured his back about 5 years get a re-injury and again about a year ago during work related tasks. Patient states he did see a [facility] doctor yesterday was prescribed a Medrol Dosepak that he started this morning. Patient states he is scheduled for an MRI on May 01. Patient states he is here today because pain is still not under control and he does not think that he can work this weekend. Patient is requesting work note. Patient states pain stems to the right lower back and radiates down to the back of the right knee. Patient states at times he does have numbness and tingling of the right leg but is able to ambulate with pain. Patient states it does hurt when sitting. Patient states that he is most comfortable when laying flat. Related Data Allergies Allergy/AdvReac Type Severity Reaction Status Date / Time No Known Allergies Allergy Verified 04/26/25 08:57 Review of Systems Review of Systems: CONSTITUTIONAL: Denies fever, chills, or sweats. EYES: Denies visual changes, redness, or discharge. ENT: Denies rhinorrhea, congestion, sore throat, or otalgia. CARDIOVASCULAR: Denies chest pain, palpitations, or edema. RESPIRATORY: Denies cough or dyspnea. GASTROINTESTINAL: Denies abdominal pain, nausea, vomiting, or diarrhea. GENITOURINARY: Denies dysuria or hematuria. SKIN: Denies rash or itching. MUSCULOSKELETAL: Positive low back pain, denies joint pain, or myalgia. NEUROLOGIC: Denies headache, numbness, or weakness. PSYCHIATRIC: Denies anxiety or depression. COUNT INCLUDES THE [facility] Past Medical History Medical History (Updated 04/26/25 @ 09:16 by Pat Connors APRN) Sciatica Social History Social History Smoking status: Current every day smoker Comments At the time of my signature I agree with nursing past medical history, surgical, social, and family history. There is no relevant family history pertinent to the presenting complaint. Exam Narrative: GENERAL: Well-appearing, well-nourished, and in no acute distress. HEAD: Normocephalic, atraumatic. EYES: PERRLA and EOMI. ENT: Nares clear, no rhinorrhea or epistaxis. Mucous membranes moist. NECK: Supple. No lymphadenopathy CHEST: Clear to auscultation. No respiratory distress. HEART: Regular rate and rhythm. No murmur heard. Normal peripheral pulses. ABDOMEN: Soft, nontender, nondistended, normal active bowel sounds. EXTREMITIES: Normal range of motion. No edema. BACK: Patient is able to ambulated without assistance but does complain of pain. Pt is lying on the stretcher in obvouis distress. No surface trauma noted. muscle tenderness to Palpation near the L5-L6 area. No spasm or mass. No step-offs or deformity noted to the cervical, thoracic or lumbar spine to firm Palpation at the midline. No CVA tenderness to percussion. No saddle anesthesia. ROM: able to stand erect. decrease in flexion only able to go forward about 15? and not able to bend backwards, limited extension, limitedLateral bending and rotation without limitation or complaint of pain. patient does have a positive straight leg raise on the right side and only able to raise the leg of approximately 35? SKIN: Warm, dry, no rash. NEURO: No focal deficits. Alert and oriented x3. Course Course Level of Care: Express Care Visit Vital Signs Vital signs: Vital Signs Temperature 36.7 C 04/26/25 08:50 Pulse Rate 62 04/26/25 08:50 Respiratory Rate 20 04/26/25 08:50 Blood Pressure 150/93 H 04/26/25 08:50 Pulse Oximetry 100 04/26/25 08:50 Oxygen Delivery Room Air 04/26/25 08:50 Temperature 36.7 C 04/26/25 08:50 Pulse Rate 62 04/26/25 08:50 Respiratory Rate 20 04/26/25 08:50 Blood Pressure 150/93 H 04/26/25 08:50 Pulse Oximetry 100 04/26/25 08:50 Oxygen Delivery Room Air 04/26/25 08:50 vital signs reviewed. The patient has been informed that they may have pre-hypertension or Hypertension based on a BP reading in the department. I recommend that the patient call the primary care provider listed on their discharge instructions or a physician of their choice this week to arrange follow up for further evaluation of possible pre-hypertension or Hypertension Medical Decision Making MDM Narrative Medical decision making narrative: Discussed with patient that he should continue taking the Medrol Dosepak that was prescribed to him by the doctor yesterday. We will go ahead and add on a muscle relaxant as well and he can also take an [id number] turmeric 1500 mg twice a day to help with inflammation. Encouraging ice to the area avoid heat as it can make inflammation worse. Discussed with patient will also provide him a work note taking him off of work until his MRI on . If patient needs continue time off he needs to get a note from his treating physician. Patient is aware the plan of care denies any other questions or concerns at this time. Differential Diagnosis Differential Diagnosis: Differential diagnosis: Acute musculoskeletal injury or exacerbation, neurological emergency, acute coronary syndrome, kidney stones, epidural abscess or hematoma,Cauda Equina Syndrome, herniation. Vital Signs Vital Signs: Vital Signs Temperature 36.7 C 04/26/25 08:50 Pulse Rate 62 04/26/25 08:50 Respiratory Rate 20 04/26/25 08:50 Blood Pressure 150/93 H 04/26/25 08:50 Pulse Oximetry 100 04/26/25 08:50 Oxygen Delivery Room Air 04/26/25 08:50 Temperature 36.7 C 04/26/25 08:50 Pulse Rate 62 04/26/25 08:50 Respiratory Rate 20 04/26/25 08:50 Blood Pressure 150/93 H 04/26/25 08:50 Pulse Oximetry 100 04/26/25 08:50 Oxygen Delivery Room Air 04/26/25 08:50 Vital signs reviewed. The patient has been informed that they may have pre-hypertension or Hypertension based on a BP reading in the department. I recommend that the patient call the primary care provider listed on their discharge instructions or a physician of their choice this week to arrange follow up for further evaluation of possible pre-hypertension or Hypertension Critical Care Time Critical Care Time Critical Care Time: No Discharge Plan Discharge Clinical Impression: Lumbar radiculopathy, Sciatica Patient Disposition: Home Condition: Stable Instructions: Antibiotic Form, Sciatica (ED), Lumbar Radiculopathy (ED), Lower Back Exercises (ED) Additional Instructions: Ice and heat to the area for 20-30 minutes Gentle stretching exercises Gentle massage Caution with lifting, bending, stooping, twisting Avoid pushing, pulling take muscle relaxants as directed--caution drowsiness and no driving or alcohol Anti-inflammatory medicine as directed--take with food He may take the muscle relaxant and anti-inflammatory at the same time Pain medicine as directed for severe pain--caution drowsiness-no driving or alcohol. If this medicine is a narcotic, you can become constipated. He may want to start a laxative right away. Follow-up with your PCP if not improving in 5-7 days Patient Language: Estonian Prescriptions: New cyclobenzaprine 10 mg tablet 10 mg PO TID PRN (Reason: muscle spasm) 7 Days Qty: 21 0RF No Action albuterol sulfate 90 mcg/actuation HFA aerosol inhaler 2 puff inhalation Q4-6H PRN (Reason: shortness of breath or wheezing) Qty: 8.5 0RF Follow-up/Referrals: PHYSICIAN,MEMORIAL COUNSELOR [Primary Care Provider, Internal Medicine] Stand Alone Forms: Work/School Release IP Time of Disposition: 09:06
[2025-04-26 08:50] VITALS: BP 150/93; PULSE 62; RESP 20; TEMP 36.7; O2SAT 100
== END 2025-04-26 09:14 | disposition home or self-care (01) ==
PROVIDERS: Emergency Provider Nurse Practitioner Family
DX: M54.16 Radiculopathy, lumbar region (principal); M54.31 Sciatica, right side; F17.200 Nicotine dependence, unspecified, uncomplicated
CPT/HCPCS: 99213; G0463